=== PATIENT | female | born 1985 | race Caucasian/White ===

== ENCOUNTER 2016-12-11 23:07 | Emergency (ER) | payer BC ==
[~2016-12-11] VITALS: Ht 162.6 cm; Wt 93.2 kg
[~2016-12-11 23:07] MED LIST: ADVIL200 MG PO; ATARAX,VISTARIL50 MG PO; AVIANE1 EACH PO; BENADRYL25 MG PO; BUDESONIDE0.5 MG/2 M IH; CELEXA20 MG PO; CORTIZONE-10 PL57 GM TP; DELTASONE20 M1 PO; FLAGYL500 MG PO; LEVSIN0.125 MG PO; MOTRIN800 MG PO; NITROFURANTOIN100 M3 PO; PEPCID40 MG PO; PERCOCET 5/31 TABLET PO; SYNTHROID125 MCG PO; VITAMIN B-12500 MC5 SL; VITAMIN B122500 MCG PO; VITAMIN D22000 UNIT PO; ZOFRAN ODT4 MG PO
[2016-12-11 23:59] LABS: HEMATOCRIT 37.4 % (36.0-46.0); MCV 82.6 FL (83-99); MEAN PLAT.VOLUME 10.4 uM^3 (9.5-12.4); PLATELET COUNT 358 K/uL (156-360); RBC DIS.WIDTH-CV 13.2 % (11.8-14.6); RBC DIS.WIDTH-SD 39.2 % (39-53); RED BLOOD COUNT 4.53 M/uL (3.80-5.20); WHITE BLOOD COUNT 17.7 K/uL (4.1-10.2)
[2016-12-12 00:09] LABS: CHLORIDE 104 mEq/L (99-109); POTASSIUM 3.5 mEq/L (3.7-5.4); SODIUM 135 mEq/L (136-147)
[2016-12-12 00:11] LABS: GLUCOSE 112 mg/dL (70-99)
[2016-12-12 00:12] LABS: ANION GAP 11 MEQ/L (2-14)
[2016-12-12 00:13] LABS: TOTAL BILIRUBIN 0.5 mg/dL (0.0-1.0)
[2016-12-12 00:14] LABS: ALKALINE PHOSPHATASE 76 IU/L (3-129)
[2016-12-12 00:15] LABS: GFR ESTIMATE (CALCULATED) > 59 mL/min/
[2016-12-12 00:16] LABS: UREA NITROGEN (BUN) 8 mg/dL (9-23)
[2016-12-12 00:23] LABS: QUANTITATIVE HCG < 4.0 MIU/ML
[2016-12-12 00:34] LABS: ADD MIUA? YES; BILIRUBIN NEGATIVE; BLOOD SMALL; COLOR YELLOW ((YELLOW)); GLUCOSE (STRIP) NEGATIVE; KETONES 20; LEUKOCYTES NEGATIVE; NITRITE NEGATIVE; PROTEIN (STRIP) NEGATIVE; SPECIFIC GRAVITY 1.017 (1.000-1.030)
[2016-12-12 00:38] LABS: LIPASE 19 U/L (1.0-51.0)
[2016-12-12 00:40] LABS: BACTERIA RARE /HPF; EPITHELIAL CELLS RARE /HPF; MUCUS 2+ /LPF; RED BLOOD CELLS 0-5 /HPF (0-5); UCUL ADDED? NO; WHITE BLOOD CELLS 0-5 /HPF (0-5)
[2016-12-12] MEDS ORDERED: BACTRIM,SEPT1 TABLET PO (02:43)
[2016-12-12 03:00] VITALS: BP 128/76
== END 2016-12-12 03:04 | disposition home or self-care (01) ==
LOC: EME 23:07
DX: N39.0 Urinary tract infection, site not specified (principal); N83.201 Unspecified ovarian cyst, right side; Z87.442 Personal history of urinary calculi; Z86.19 Personal history of other infectious and parasitic diseases; Z88.0 Allergy status to penicillin; Z88.1 Allergy status to other antibiotic agents; F17.200 Nicotine dependence, unspecified, uncomplicated
CPT/HCPCS: 74177; 80053; 81003; 83690; 84702; 85027; 99281; 99285; J2405; J7030